=== PATIENT | male | born 1985 | race Caucasian/White ===

== ENCOUNTER → 2019-08-07 11:59 | Outpatient (CLI) | payer BC | END | disposition home or self-care (01) | LOC: D.RAD 11:59 | PROVIDERS: ATTEND Urology | DX: N20.0 Calculus of kidney (principal) ==

== ENCOUNTER 2019-08-27 05:07 | Day surgery (SDC) | payer BC ==
[~2019-08-27] VITALS: Ht 182.9 cm; Wt 114.8 kg
[2019-08-27 05:53] VITALS: BP 128/76; Ht 182.9 cm; Wt 114.8 kg
--- NOTE | 2019-08-27 08:45 | NUR ---
0838-REC'D FROM RR. AWAKE AND ALERT,VSS,DENIES PAIN. IV PATENT AT [facility]. REVIEWED DISCHARGE CRITERIA. VERBALIZED UNDERSTANDING. TOLERATING ICE WATER. CL IN EASY REACH. SPOUSE AT BEDSIDE
--- NOTE | 2019-08-27 09:10 | OP ---
PATIENT NAME: FOREST AVILA MEDICAL RECORD: [id number] :89 LOCATION:[facility] ADMISSION DATE: SURGEON: KATIE TALAVERA MD DATE OF OPERATION: 08/27/2019 SURGEON: Katie Talavera MD ANESTHESIA: General anesthesia by Rubén Sumner CRNA DIAGNOSIS: Right 5 mm renal stone. PROCEDURE: Right extracorporeal shock wave lithotripsy (ESWL) times 1500 shocks. FINDINGS: Radiodense 5 mm right renal stone. ESTIMATED BLOOD LOSS: None. CLINICAL HISTORY: This is a 34-year-old male, who has a history of kidney stones. He was found to have on CT scan two stones 5 mm and 3 mm in size. He comes now to have lithotripsy of the stones on the right side. In the meantime, he thinks he passed the 3 mm stone. He is not allergic to any medications. He was given ampicillin and sulbactam extension associate to the OR. DESCRIPTION OF PROCEDURE: The patient was placed on the treatment table. Fluoroscopy was performed and we could see the 5 mm stone. The 3 mm stone if it was still present could not be seen. The stone was targeted in 2 planes and the patient was given induction of general anesthesia. Treatments were given to 1500 shocks and the stone was completely broken up at that point. We then terminated the treatment. I will see the patient in followup in 2 weeks' time with a KUB. TRANSINT:[id number] Voice Confirmation ID: [id number] DOCUMENT ID: [id number] KATIE TALAVERA MD at 0910 CC: [id number] DICTATION DATE: 08/27/19 0857 [employer] TECHNICAL DIRECTOR: 08/27/19 0909 [facility] [address] [id number]
--- NOTE | 2019-08-27 09:12 | NUR ---
4636-FULL LIQUID TRAY TO ROOM
--- NOTE | 2019-08-27 09:46 | NUR ---
0940-AMBULATED TO RESTROOM AND VOIDED WITHOUT COMPLICATIONS. REMOVED IV FROM RIGHT HAND WITH CATH INTACT. DISPOSED INTO SHARPS. COVERED WITH GUAZE,SECURED WITH MEDIPORE TAPE.
== END 2019-08-27 10:10 | disposition home or self-care (01) ==
LOC: D.OPS 05:07
PROVIDERS: ATTEND Urology
DX: N20.0 Calculus of kidney (principal)